=== PATIENT | male | born 1965 | race Caucasian/White ===

== ENCOUNTER 2020-03-01 14:02 | Emergency (ER) | payer SELFPAY ==
[~2020-03-01] VITALS: Ht 167.7 cm; Wt 72.7 kg
--- NOTE | 2020-03-01 14:15 | NUR ---
Pt triaged, H/P and allergies obtained. Pt states multiple allergies to narcotics yet states, "diladid is the only thing they give me that works." This RN asked the pt was the other reactions are to pain medications. Pt replied, "they make me stop breathing".
--- NOTE | 2020-03-01 14:45 | NUR ---
Pt requesting pain medications prior to going to radiology. This RN notified the pt the doctor had not yet put in any orders and that he wanted the CT stat.
--- NOTE | 2020-03-01 14:53 | ED Trauma-Multisystem ---
General Chief Complaint: Trauma-Non Activation Stated Complaint: HEAD/JAW INJ & ABD CRUSH INJ Nursing Triage Note: Pt arrived POV by his son after being bucked off a horse, drug under it and trampled. Pt unable to recall the event. Pt states that witnesses believe him to have a positive LOC for 2-3 minutes. Pt c/o Rt sided abd/rib pain, posterior head and left sided jaw pain. Source of Information: Patient, Old Records, RN/MD, RN Notes Reviewed Exam Limitations: No Limitations History of Present Illness Date Seen by Provider: Mar 01, 2020 Time Seen by Provider: 14:00 Initial Comments This patient presents to the emergency department should 4-year-old male states that he was bucked off a horse drug under little bit. Patient is complaining of lower abdominal pain posterior head and neck pain and jaw pain on the left. Patient believes he might a lot knocked out and lost consciousness. Patient has no obvious signs of bruising other than a hematoma posterior scalp. Patient is complaining of pain to the left jaw area but no obvious signs of trauma. We'll do medical evaluation treatment is needed. Location Injury Occurred: [place] Occurred: This Morning Pain/Injury Location: Abdomen, Chest, Head, Pelvis Method of Injury: Fall Loss of Consciousness: Brief (Seconds) Associated Symptoms (Fall): No Denies Symptoms, No Abdominal Pain, No Chest Pain, No Confusion, No Dizziness; Headache; No Lightheadedness, No Muscle Spasms, No Nausea/Vomiting, No Neck Pain, No Ringing in Ears, No Seizures, No Shortness of Air, No Slurred Speech, No Trouble Walking, No Vision Changes, No Other Allergies and Home Medications Allergies Coded Allergies: butorphanol (Verified Allergy, Severe, 03/01/20) "stop breathing" fentanyl (Verified Allergy, Severe, 03/01/20) "stop breathing" ketorolac (Verified Allergy, Severe, 03/01/20) "stop breathing" meperidine (Verified Allergy, Severe, 03/01/20) "stop breathing" morphine (Verified Allergy, Severe, 03/01/20) "stop breathing" Iodinated Contrast Media (Verified Allergy, Unknown, 03/01/20) Penicillins (Verified Allergy, Unknown, 03/01/20) Patient Home Medication List Home Medication List Reviewed: Yes Review of Systems Review of Systems Constitutional: No no symptoms reported; see HPI; No chills, No diaphoresis, No dizziness, No fever, No malaise, No weakness, No weight gain, No weight loss, No other Eyes: Denies No Symptoms Reported, Denies See HPI, Denies Blindness, Denies Blurred Vision, Denies Drainage, Denies Decreased Acuity, Denies Foreign Body Sensation, Denies Inflammation, Denies Pain, Denies Photophobia, Denies Previous Injury, Denies Shadows, Denies Tunnel Vision, Denies Vision Changes, Denies Co ntact Lenses, Denies Glasses, Denies Other Ears: Denies No Symptoms Reported, Denies See HPI, Denies Dizziness, Denies Pain, Denies Tinnitus, Denies Bloody Discharge, Denies Clear Discharge, Denies Purulent Discharge, Denies Serosanguinous Discharge, Denies Previous Injury, Denies Other Nose: No No Symptoms Reported, No See HPI, No Bloody Discharge, No Clear Discharge, No Purulent Discharge, No Serosanguinous Discharge, No Clots, No Congestion, No Epistaxis, No Pain, No Previous Injury, No Other Mouth: No No Symptoms Reported; See HPI; No Bloody Discharge, No Clear Di scharge, No Purulent Discharge, No Serosanguinous Discharge, No Clots, No Loose Teeth; Pain; No Swelling, No Previous Injury, No Other Throat: No No Symptoms to Report, No See HPI, No Aphonia, No Difficulty With Fluids, No Discharge, No Hoarse, No Muffled, No Neck Stiffness, No Pain, No Painful Swallowing, No Previous Injury, No Swelling, No Other Respiratory: No no symptoms reported, No see HPI, No cough, No dyspnea on exertion, No hemoptysis, No orthopnea, No phlegm, No short of breath, No stridor, No wheezing, No other Cardiovascular: Denies No Symptoms Reported, Denies See HPI, Denies Chest Pain, Denies Edema, Denies Irregular Heart Rate, Denies Lightheadedness, Denies Palpitations, Denies Syncope, Denies Other Gastrointestinal: RUQ, RLQ, abdominal pain (RUQ) Musculoskeletal: see HPI, back pain, muscle pain, neck pain Skin: no symptoms reported All Other Systems Reviewed Negative Unless Noted: Yes Past Ujxovin-Yldelr-Lcchig Hx Patient Social History Recent Foreign Travel: No Contact w/Someone Who Travel: No Physical Exam Vital Signs Vital Signs - First Documented Height, Weight, BMI Height: '" Weight: lbs. oz. kg; BMI Method: General Appearance: No Apparent Distress, WD/WN Head: Swelling, Tenderness (posterior scalp) Ears, Nose, Throat: Hearing Grossly Normal, No Evidence of ENT Injury, No Dental Injury, Other (complains of left jaw pain. Reluctant to open mouth. Due to pain) Neck: Full Range of Motion, Normal Inspection, Non Tender, Supple Cardiovascular: Regular Rate, Rhythm, No Edema, No Gallop, No JVD, No Murmur, Normal Peripheral Pulses Respiratory: Chest Non Tender, Lungs Clear, Normal Breath Sounds, No Accessory Muscle Use, No Respiratory Distress Gastrointestinal: Normal Bowel Sounds, No Organomegaly, No Pulsatile Mass, Soft, Tenderness (right side of the abdomen upper and lower periumbilical area.) Back: Normal Inspection, No CVA Tenderness, No Vertebral Tenderness Extremity: Normal Capillary Refill, Normal Inspection, Normal Range of Motion, Non Tender, No Calf Tenderness, No Pedal Edema Neurologic/Psychiatric: Alert, Oriented x3, No Motor/Sensory Deficits, Normal Mood/Affect Skin: Normal Color, Warm/Dry Progress/Results/Core Measures Results/Orders Lab Results Laboratory Tests Test 03/01/20 14:30 Range/Units White Blood Count 10.2 4.3-11.0 10^3/uL Red Blood Count 6.14 H 4.35-5.85 10^6/uL Hemoglobin 12.4 L 13.3-17.7 G/DL Hematocrit 41 40-54 % Mean Corpuscular Volume 67 L 80-99 FL Mean Corpuscular Hemoglobin 20 L 25-34 PG Mean Corpuscular Hemoglobin Concent 30 L 32-36 G/DL Red Cell Distribution Width 16.3 H 10.0-14.5 % Platelet Count 298 130-400 10^3/uL Mean Platelet Volume 9.4 7.4-10.4 FL Neutrophils (%) (Auto) 68 42-75 % Lymphocytes (%) (Auto) 20 12-44 % Monocytes (%) (Auto) 8 0-12 % Eosinophils (%) (Auto) 2 0-10 % Basophils (%) (Auto) 0 0-10 % Neutrophils # (Auto) 7.0 1.8-7.8 X 10^3 Lymphocytes # (Auto) 2.1 1.0-4.0 X 10^3 Monocytes # (Auto) 0.8 0.0-1.0 X 10^3 Eosinophils # (Auto) 0.5 H 0.0-0.3 10^3/uL Basophils # (Auto) 0.0 0.0-0.1 10^3/uL My Orders Orders - AMY PADILLA MD Ed Iv/Invasive Line Start (03/01/20 14:16) Comprehensive Metabolic Panel (03/01/20 14:16) Cbc With Automated Diff (03/01/20 14:16) Drug Screen Stat (Urine) (03/01/20 14:16) Protime With Inr (03/01/20 14:16) Urinalysis (03/01/20 14:16) Ekg Tracing (03/01/20 14:16) Ct Head/Face/Cervical Wo (03/01/20 14:16) Ct Chest/Abdomen/Pelvis Wo (03/01/20 14:16) Vital Signs/I&O 03/01/20 03/01/20 14:10 14:10 Temp 36.3 36.3 Pulse 122 122 Resp 16 16 B/P (MAP) 138/76 (96) 138/76 (96) Pulse Ox 98 98 O2 Delivery Room Air Room Air Blood Pressure Mean: 96 Progress Progress Note : Time: 15:13 Progress Note Patient has 2 numerous to count allergies to pain medication. Patient states he needs no allotted for pain states nothing else works. I had a long discussion with patient about negative physical exam. Patient does not appear to be acutely distressed or in significant pain did offer other alternative forms of pain medication the patient refused. Patient states if he does receive IV Dilaudid that he is signing out AGAINST MEDICAL ADVICE. I advised the patient about concerns of possible multisystem trauma patient gets up off the bed and walks around does not appear to be in acute distress comfort. Patient refuses any fur ther evaluation refuses any alternative medication of that IV Dilaudid makes the statement that his PCP we'll give him Dilaudid if he needs it. I did discuss at length with patient about options but he refused to listen. Patient is left AGAINST MEDICAL ADVICE states he will follow-up with his primary care physician. Departure Impression Primary Impression: Fall Additional Impression: Chronic pain Disposition: AGAINST MEDICAL ADVICE Condition: Stable (patient has left AGAINST MEDICAL ADVICE. At no significant obvious signs of injury. Other than a small scalp hematoma posteriorly. Patient was alert and oriented 3 understanding the risk and concerns. Stated that he will follow up with his primary care physician. Patient was instructed to return to the emergency department symptoms don't improve or worsen.) Departure-Patient Inst. Referrals: NO,LOCAL PHYSICIAN (PCP/Family) Primary Care Physician AMY PADILLA MD Mar 01, 2020 14:52
[2020-03-01 15:03] LABS: BASOPHILS % (AUTO) 0 % (0-10); EOSINOPHILS % (AUTO) 2 % (0-10); HEMATOCRIT 41 % (40-54); HEMOGLOBIN 12.4 G/DL (13.3-17.7); LYMPHOCYTES # (AUTO) 2.1 X 10^3 (1.0-4.0); LYMPHOCYTES % (AUTO) 20 % (12-44); MEAN CORPUSCULAR HEMOGLOBIN 20 PG (25-34); MEAN CORPUSCULAR HGB CONC 30 G/DL (32-36); MEAN CORPUSCULAR VOLUME 67 FL (80-99); MEAN PLATELET VOLUME 9.4 FL (7.4-10.4); MONOCYTES # (AUTO) 0.8 X 10^3 (0.0-1.0); MONOCYTES % (AUTO) 8 % (0-12); NEUTROPHILS % (AUTO) 68 % (42-75); PLATELET COUNT 298 10^3/uL (130-400); RED CELL DISTRIBUTION WIDTH 16.3 % (10.0-14.5); WHITE BLOOD COUNT 10.2 10^3/uL (4.3-11.0)
--- NOTE | 2020-03-01 15:03 | NUR ---
Pt call light activated and answered by this RN. Pt again requesting pain medication. This RN stated, "there are no orders for pain medication". Pt then stood up from the bed, pointed at his IVSL and instructed, "take this out! I will just leave! I will go to my doctor. He will give me pain meds." This RN replied, "well let me go ask the physician and make sure there is no mix up." I spoke with Dr. Esteves at that time. stated he would go in and talk to the pt.
[2020-03-01 15:04] LABS: EOSINOPHILS # (AUTO) 0.5 10^3/uL (0.0-0.3)
--- NOTE | 2020-03-01 15:05 | NUR ---
This RN was notified by Dr. Esteves the pt was going to leave AMA and that, "he said his doctor will give him Dilaudid."
--- NOTE | 2020-03-01 15:07 | NUR ---
Pt aware of risks of leaving AMA as presented by Dr. Esteves. AMA forms signed by Pt. IVSL d/c'd by this RN. Pt ambulatory to ED checkout.
[2020-03-01 15:12] VITALS: BP 134/71
--- NOTE | 2020-03-01 15:12 | Diagnostic Imaging Report ---
EXAMINATION: CT head, face and CT cervical spine without contrast. TECHNIQUE: Multiple contiguous axial images were obtained through the face, brain and cervical spine without the use of intravenous contrast. Sagittal and coronal reformations through the cervical spine were then performed. All CT scans use one or more of the following dose optimizing techniques: automated exposure control, MA and/or KvP adjustment based on a patient size and exam type, or iterative reconstruction. HISTORY: Trauma. COMPARISON: None available. FINDINGS: The prieto-white matter differentiation is normal. No mass effect or midline shift. The ventricles are normal in size and configuration. Basilar cisterns are patent. There are no intra- or extra-axial fluid collections. There is no intracranial hemorrhage. The orbits are normal. Paranasal sinuses are normal. Mastoid air cells are clear. No soft tissue abnormality is seen. No osseous lesions or fractures are seen. No fracture is seen in the face. The nasal bones are normal. Mandible and maxillae are normal. Zygomatic arches are normal. Pterygoid plates are normal. No soft tissue abnormality is seen. There is a periapical lucency about the right maxillary canine. There is a periapical lucency about a left mandibular molar. There is anterior subluxation of the left mandibular condyle related to the mandibular fossa compared to the right side. The alignment of the cervical spine is normal. No fracture is seen. Vertebral body heights are normal. The craniocervical junction is normal. Disc heights are normal. Facet and uncovertebral joints are normal. There is no osseous spinal canal stenosis. No soft tissue abnormality is seen in the neck. Limited views of the superior thorax are normal. IMPRESSION: 1. No acute intracranial abnormality. 2. No cervical spine fracture. 3. No fracture in the face. 4. Anterior subluxation of the left mandibular condyle relative to the mandibular fossa compared to the right side. This may be positional but correlate for evidence of dislocation clinically. Dictated by: Dictated on workstation # [id number]
--- NOTE | 2020-03-01 15:13 | Diagnostic Imaging Report ---
PROCEDURE: CT chest, abdomen, and pelvis without contrast. TECHNIQUE: Multiple contiguous axial images were obtained through the chest, abdomen, and pelvis without the use of intravenous contrast. Auto Exposure Controls were utilized during the CT exam to meet ALARA standards for radiation dose reduction. INDICATION: Trauma, bucked off a horse. COMPARISON: No prior studies are available for comparison. FINDINGS: CT chest: Postoperative changes of median sternotomy are identified. No mediastinal hematoma is identified. There are coronary arterial calcifications present. No pericardial or pleural fluid or evidence of hemothorax is identified. No pulmonary contusion or pneumothorax is identified. The bony structures appear intact. IMPRESSION: Unremarkable noncontrast CT of the chest. CT abdomen and pelvis: No perihepatic or perisplenic fluid collection is seen. Evaluation for visceral injury is limited without intravenous contrast. Pancreas is unremarkable. The right adrenal gland is unremarkable. There is some left adrenal enlargement, perhaps owing to adenoma. No perinephric hematoma or definite renal injury is seen. Aorta is calcified but nonaneurysmal. There appears to be an aorta biiliac graft/stents. The small and large bowel loops are normal caliber. There is no free fluid identified. No definite bladder injury is identified. No acute bony abnormalities detected. IMPRESSION: No definite evidence of abdominal or pelvic visceral injury. Dictated by: Dictated on workstation # [id number]
[2020-03-01 15:15] LABS: INR 0.9 (0.8-1.4); PROTHROMBIN TIME PATIENT 12.7 SEC (12.2-14.7)
[2020-03-01 15:58] LABS: CARBON DIOXIDE 20 MMOL/L (21-32); CHLORIDE 97 MMOL/L (98-107); POTASSIUM 4.5 MMOL/L (3.6-5.0); SODIUM 133 MMOL/L (135-145)
[2020-03-01 15:59] LABS: ALANINE AMINOTRANSFERASE 13 U/L (0-55); ALBUMIN 3.8 GM/DL (3.2-4.5); ALKALINE PHOSPHATASE 147 U/L (40-136); BILIRUBIN,TOTAL 0.2 MG/DL (0.1-1.0); BUN/CREATININE RATIO 16; CALCIUM 9.3 MG/DL (8.5-10.1); CREATININE SERUM 0.77 MG/DL (0.60-1.30); GFR ESTIMATED > 60; GLUCOSE 335 MG/DL (70-105); TOTAL PROTEIN 6.8 GM/DL (6.4-8.2)
== END 2020-03-01 15:12 | disposition left against medical advice (07) ==
LOC: ER FS 14:05
DX: S00.03XA Contusion of scalp, initial encounter (principal); R68.84 Jaw pain; G89.29 Other chronic pain; Z88.5 Allergy status to narcotic agent; Z88.6 Allergy status to analgesic agent; Z88.0 Allergy status to penicillin; Z91.041 Radiographic dye allergy status; W01.0XXA Fall on same level from slipping, tripping and stumbling without subsequent striking against object, initial encounter
CPT/HCPCS: 36415; 70450; 70486; 71250; 72125; 74176; 80053; 85025; 85610